=== PATIENT | female | born 1955 | race Caucasian/White ===

== ENCOUNTER 2021-04-08 15:35 | Inpatient (IN) | payer MEDICAID ==
[~2021-04-08] VITALS: Ht 165.1 cm; Wt 95.0 kg
[2021-04-08] MEDS ORDERED: acetaminophen 325mg tablet PO ONE (15:55)
[2021-04-08] MEDS ORDERED: ATOR10TA PO (16:02)
[2021-04-08] MEDS ORDERED: PSEU-259 PO (16:02)
[2021-04-08] MEDS ORDERED: dexamethasone 4mg tablet PO ONE (16:20)
[2021-04-08] MEDS ORDERED: ipratropium/albuterol 3ml nebule NEB ONE (16:20)
[2021-04-08 17:05] LABS: BASOPHILS % (AUTO) 0.6 % (0-1); EOSINOPHILS # (AUTO) 0.1 X10'3 (0-0.9); EOSINOPHILS % (AUTO) 1.2 % (0-6); HEMATOCRIT 35.5 % (35.0-45.0); LYMPHOCYTES % (AUTO) 18.9 % (21-51); MEAN CORPUSCULAR HGB CONC 33.9 g/dL (33.0-36.5); MEAN CORPUSCULAR VOLUME 82.6 FL (78-98); MEAN PLATELET VOLUME 9.7 FL (7.4-10.4); MONOCYTES # (AUTO) 0.7 X10'3 (0-0.9); MONOCYTES % (AUTO) 12.5 % (2-12); NEUTROPHILS # (AUTO) 3.6 X10'3 (1.8-7.7); NEUTROPHILS % (AUTO) 66.8 % (42-75); PLATELET COUNT 164 X10'3 (140-440); RED CELL DISTRIBUTION WIDTH 14.5 % (11.5-14.5); WHITE BLOOD COUNT 5.3 X10'3 (4.5-11.0)
[2021-04-08 17:17] LABS: ALANINE AMINOTRANSFERASE 45 U/L (12-78); ALBUMIN 3.1 G/DL (3.4-5.0); ALBUMIN/GLOBULIN RATIO 0.9 (1.1-1.5); ALKALINE PHOSPHATASE 70 IU/L (46-116); ANION GAP 8 (8-16); ASPARTATE AMINO TRANSFERASE 69 U/L (10-37); BILIRUBIN,TOTAL 0.7 MG/DL (0.1-1.0); BLOOD UREA NITROGEN 10 MG/DL (7-18); BUN/CREATININE RATIO 10.5 (6.6-38.0); CHLORIDE 101 MMOL/L (99-107); CREATININE 0.95 MG/DL (0.40-0.90); GLUCOSE 96 MG/DL (70-104); POTASSIUM 3.9 MMOL/L (3.5-5.1); SODIUM 135 MMOL/L (135-145); TOTAL CARBON DIOXIDE 26.2 MMOL/L (24-32); TOTAL PROTEIN 6.7 G/DL (6.4-8.2); eGFR 59 ML/MIN
[2021-04-08 17:20] LABS: MAGNESIUM 2.1 MG/DL (1.5-2.4)
--- NOTE | 2021-04-08 17:32 | NUR ---
Pt refuses covid test and flu test.
[2021-04-08 17:35] LABS: D-DIMER 1.44 MG/L FEU (0-0.50)
[2021-04-08] MEDS ORDERED: iohexol 350MG/ML 100ml bottle IV ONE (17:50)
--- NOTE | 2021-04-08 18:01 | NUR ---
RT PAGED FOR BREATHING TX IN RAP
[2021-04-08 19:07] LABS: C-REACTIVE PROTEIN 9.49 MG/DL (0.0-0.5); FERRITIN 677 NG/ML (8-252); LACTATE DEHYDROGENASE 503 U/L (81-234)
[2021-04-08] MEDS ORDERED: REMDESIVIR INJ 100 MG in normal saline 100ml IV soln 80 ML IV SCH (19:10)
[2021-04-08] MEDS ORDERED: potassium Cl 20 mEq SR tablet PO PRN ×2 (19:15)
[2021-04-08] MEDS ORDERED: morphine 2 MG/ML inj. syringe IV PRN (19:15)
[2021-04-08] MEDS ORDERED: ondansetron/PF 4mg/2ml inj IV PRN (19:15)
[2021-04-08] MEDS ORDERED: magnesium hydroxide 30ml (MOM) UD suspension PO PRN (19:15)
[2021-04-08] MEDS ORDERED: HYDROcodone/acetaminophen 5mg/325mg tablet PO PRN (19:15)
[2021-04-08] MEDS ORDERED: potassium CL 10mEq/100ml bag 100 ML IV PRN (19:15)
[2021-04-08] MEDS ORDERED: magnesium Cl slow-release 64mg tablet PO PRN (19:15)
[2021-04-08] MEDS ORDERED: mag hydrox/Alum hydrox/simeth 30ml oral suspension PO PRN (19:15)
[2021-04-08] MEDS ORDERED: acetaminophen 325mg tablet PO PRN ×2 (19:15)
[2021-04-08] MEDS ORDERED: magnesium 2GM in 50ml NS 50 ML IV PRN (19:15)
[2021-04-08] MEDS ORDERED: magnesium 4gm in 100ml NS 100 ML IV PRN (19:15)
[2021-04-08] MEDS ORDERED: REMDESIVIR 200 MG in NS 100ml IVPB Loading dose IV ONE (19:25)
[2021-04-08] MEDS ORDERED: dexamethasone 4mg/ml inj IV SCH (20:00)
[2021-04-08] MEDS: K and/or MAG REPLACEMENT MC SCH (20:00)
[2021-04-08] MEDS: albuterol 2.5 MG/3 ML nebule NEB SCH (20:00)
[2021-04-08] MEDS: normal saline 1000ml 1,000 ML IV SCH (20:17)
[2021-04-08] MEDS: dexamethasone 6 MG in D5W 100ml IV soln IV SCH (20:35)
[2021-04-08] MEDS ORDERED: temazepam 15mg capsule PO PRN (21:00)
[2021-04-08] MEDS: CefTRIAXone 2gm/D5W 50ml BAG 50 ML IV SCH (21:04)
[2021-04-08] MEDS ORDERED: NO HOME MEDS (22:43)
[2021-04-08 22:44] LABS: CLARITY,URINE CLEAR (Clear); COLOR,URINE YELLOW (Yellow); GLUCOSE, URINE NEGATIVE (Neg); KETONES,URINE NEGATIVE (Neg); LEUKOCYTE ESTERASE ,URINE NEGATIVE (Neg); NITRITES, URINE NEGATIVE (Neg); OCCULT BLOOD,URINE NEGATIVE (Neg); PROTEIN,URINE NEGATIVE (Neg); UROBILINOGEN,URINE 0.2 E.U/dL (0.2-1.0)
[2021-04-08 22:47] LABS: UA COLLECTION TYPE NON-SPECIFIED
[2021-04-09] MEDS: heparin, porcine 5000 units/ml vial SQ SCH ×3 (00:50→16:00)
[2021-04-09] MEDS: albuterol 2.5 MG/3 ML nebule NEB SCH ×6 (04:00→19:29)
[2021-04-09] MEDS: ALBUTEROL INHALER 1 PUFF/90 MCG INHALER IH SCH ×6 (04:43→23:43)
[2021-04-09] MEDS ORDERED: REMDESIVIR INJ 100 MG in normal saline 100ml IV soln 100 ML IV SCH (08:00)
[2021-04-09] MEDS: CefTRIAXone 2gm/D5W 50ml BAG 50 ML IV SCH (08:00)
[2021-04-09] MEDS: K and/or MAG REPLACEMENT MC SCH ×2 (08:00→19:29)
[2021-04-09 09:41] LABS: BASOPHILS % (AUTO) 0.5 % (0-1); EOSINOPHILS % (AUTO) 0.1 % (0-6); HEMATOCRIT 38.5 % (35.0-45.0); HEMOGLOBIN 12.8 g/dl (12.0-16.0); LYMPHOCYTES # (AUTO) 0.8 X10'3 (1.1-4.8); LYMPHOCYTES % (AUTO) 19.3 % (21-51); MEAN CORPUSCULAR HEMOGLOBIN 27.6 PG (27.0-31.0); MEAN CORPUSCULAR HGB CONC 33.2 g/dL (33.0-36.5); MEAN CORPUSCULAR VOLUME 83.1 FL (78-98); MEAN PLATELET VOLUME 9.5 FL (7.4-10.4); MONOCYTES # (AUTO) 0.4 X10'3 (0-0.9); MONOCYTES % (AUTO) 8.7 % (2-12); NEUTROPHILS % (AUTO) 71.4 % (42-75); PLATELET COUNT 176 X10'3 (140-440); RED BLOOD COUNT 4.63 X10'6 (4.20-5.60); RED CELL DISTRIBUTION WIDTH 14.5 % (11.5-14.5); WHITE BLOOD COUNT 4.2 X10'3 (4.5-11.0)
[2021-04-09 09:49] LABS: D-DIMER 1.62 MG/L FEU (0-0.50)
[2021-04-09 09:55] LABS: ALANINE AMINOTRANSFERASE 43 U/L (12-78); ALBUMIN 2.8 G/DL (3.4-5.0); ALBUMIN/GLOBULIN RATIO 0.7 (1.1-1.5); ALKALINE PHOSPHATASE 65 IU/L (46-116); ANION GAP 11 (8-16); ASPARTATE AMINO TRANSFERASE 53 U/L (10-37); BILIRUBIN,TOTAL 0.4 MG/DL (0.1-1.0); BLOOD UREA NITROGEN 12 MG/DL (7-18); BUN/CREATININE RATIO 14.1 (6.6-38.0); CALCIUM 8.8 MG/DL (8.5-10.1); CHLORIDE 106 MMOL/L (99-107); CREATININE 0.85 MG/DL (0.40-0.90); GLUCOSE 187 MG/DL (70-104); POTASSIUM 3.8 MMOL/L (3.5-5.1); SODIUM 142 MMOL/L (135-145); TOTAL CARBON DIOXIDE 25.1 MMOL/L (24-32); eGFR 67 ML/MIN
[2021-04-09 09:57] LABS: C-REACTIVE PROTEIN 9.53 MG/DL (0.0-0.5)
[2021-04-09] MEDS: REMDESIVIR INJ 100 MG in normal saline 100ml IV soln 100 ML IV SCH (11:19)
[2021-04-09] MEDS: dexamethasone 6 MG in D5W 100ml IV soln IV SCH ×2 (11:19→20:55)
[2021-04-09] MEDS: normal saline 1000ml 1,000 ML IV SCH (11:27)
[2021-04-10] MEDS: heparin, porcine 5000 units/ml vial SQ SCH ×4 (00:13→23:50)
[2021-04-10 01:02] LABS: BASOPHILS # (AUTO) 0.1 X10'3 (0-0.2); BASOPHILS % (AUTO) 0.6 % (0-1); EOSINOPHILS % (AUTO) 0.1 % (0-6); HEMATOCRIT 34.9 % (35.0-45.0); HEMOGLOBIN 11.7 g/dl (12.0-16.0); LYMPHOCYTES # (AUTO) 0.8 X10'3 (1.1-4.8); MEAN CORPUSCULAR HEMOGLOBIN 27.6 PG (27.0-31.0); MEAN CORPUSCULAR HGB CONC 33.4 g/dL (33.0-36.5); MEAN CORPUSCULAR VOLUME 82.5 FL (78-98); MEAN PLATELET VOLUME 9.6 FL (7.4-10.4); MONOCYTES # (AUTO) 0.9 X10'3 (0-0.9); MONOCYTES % (AUTO) 8.7 % (2-12); NEUTROPHILS # (AUTO) 8.6 X10'3 (1.8-7.7); NEUTROPHILS % (AUTO) 82.6 % (42-75); PLATELET COUNT 217 X10'3 (140-440); RED BLOOD COUNT 4.23 X10'6 (4.20-5.60); RED CELL DISTRIBUTION WIDTH 14.7 % (11.5-14.5); WHITE BLOOD COUNT 10.4 X10'3 (4.5-11.0)
[2021-04-10 01:17] LABS: ALANINE AMINOTRANSFERASE 48 U/L (12-78); ALBUMIN 2.7 G/DL (3.4-5.0); ALBUMIN/GLOBULIN RATIO 0.8 (1.1-1.5); ALKALINE PHOSPHATASE 71 IU/L (46-116); ANION GAP 10 (8-16); ASPARTATE AMINO TRANSFERASE 59 U/L (10-37); BILIRUBIN,TOTAL 0.3 MG/DL (0.1-1.0); BLOOD UREA NITROGEN 20 MG/DL (7-18); BUN/CREATININE RATIO 16.8 (6.6-38.0); C-REACTIVE PROTEIN 7.23 MG/DL (0.0-0.5); CALCIUM 9.7 MG/DL (8.5-10.1); CHLORIDE 106 MMOL/L (99-107); CREATININE 1.19 MG/DL (0.40-0.90); GLUCOSE 151 MG/DL (70-104); POTASSIUM 4.3 MMOL/L (3.5-5.1); SODIUM 140 MMOL/L (135-145); TOTAL CARBON DIOXIDE 23.6 MMOL/L (24-32); TOTAL PROTEIN 6.2 G/DL (6.4-8.2); eGFR 46 ML/MIN
[2021-04-10 01:53] LABS: D-DIMER 1.22 MG/L FEU (0-0.50)
[2021-04-10 02:29] LABS: TOTAL CELLS COUNTED 100
[2021-04-10 02:30] LABS: PLATELET ESTIMATE NORMAL
[2021-04-10] MEDS: normal saline 1000ml 1,000 ML IV SCH ×2 (02:36→16:12)
[2021-04-10] MEDS: ALBUTEROL INHALER 1 PUFF/90 MCG INHALER IH SCH ×6 (03:36→22:41)
[2021-04-10] MEDS: albuterol 2.5 MG/3 ML nebule NEB SCH ×2 (04:00→08:00)
[2021-04-10] MEDS: K and/or MAG REPLACEMENT MC SCH ×2 (08:00→20:00)
[2021-04-10] MEDS: CefTRIAXone 2gm/D5W 50ml BAG 50 ML IV SCH (08:25)
[2021-04-10] MEDS: dexamethasone 6 MG in D5W 100ml IV soln IV SCH ×2 (08:37→21:24)
[2021-04-10] MEDS: REMDESIVIR INJ 100 MG in normal saline 100ml IV soln 100 ML IV SCH (08:37)
--- NOTE | 2021-04-10 16:04 | NUR ---
road test performed on patient walking pulse ox 81% RA
--- NOTE | 2021-04-10 17:05 | NUR ---
received report from VAIBHAV Simpson in ED. pt going to room 4019N.
--- NOTE | 2021-04-10 18:08 | NUR ---
pt arrived to floor at 1750 to room 4015B
[2021-04-10 18:30] VITALS: BP 102/55
--- NOTE | 2021-04-10 18:30 | NUR ---
Problems reprioritized. Patient report given, questions answered & plan of care reviewed with VAIBHAV Salazar.
[2021-04-10 22:00] VITALS: BP 104/62
[2021-04-11 02:00] VITALS: BP 94/52
[2021-04-11] MEDS: ALBUTEROL INHALER 1 PUFF/90 MCG INHALER IH SCH ×3 (03:11→11:18)
--- NOTE | 2021-04-11 06:10 | NUR ---
received report from angella alexander
--- NOTE | 2021-04-11 06:50 | NUR ---
Problems reprioritized. Patient report given, questions answered & plan of care reviewed with angella Alexander.
[2021-04-11 07:19] LABS: BASOPHILS % (AUTO) 0.2 % (0-1); EOSINOPHILS % (AUTO) 0 % (0-6); HEMATOCRIT 30.2 % (35.0-45.0); HEMOGLOBIN 10.3 g/dl (12.0-16.0); LYMPHOCYTES # (AUTO) 0.7 X10'3 (1.1-4.8); LYMPHOCYTES % (AUTO) 6.9 % (21-51); MEAN CORPUSCULAR HEMOGLOBIN 28.1 PG (27.0-31.0); MEAN CORPUSCULAR HGB CONC 34.2 g/dL (33.0-36.5); MONOCYTES # (AUTO) 0.8 X10'3 (0-0.9); MONOCYTES % (AUTO) 7.6 % (2-12); NEUTROPHILS # (AUTO) 9.1 X10'3 (1.8-7.7); NEUTROPHILS % (AUTO) 85.3 % (42-75); PLATELET COUNT 233 X10'3 (140-440); RED BLOOD COUNT 3.68 X10'6 (4.20-5.60); RED CELL DISTRIBUTION WIDTH 14.9 % (11.5-14.5); WHITE BLOOD COUNT 10.7 X10'3 (4.5-11.0)
[2021-04-11 07:38] LABS: ALANINE AMINOTRANSFERASE 46 U/L (12-78); ALBUMIN 2.2 G/DL (3.4-5.0); ALBUMIN/GLOBULIN RATIO 0.7 (1.1-1.5); ALKALINE PHOSPHATASE 66 IU/L (46-116); ANION GAP 7 (8-16); ASPARTATE AMINO TRANSFERASE 47 U/L (10-37); BILIRUBIN,TOTAL 0.2 MG/DL (0.1-1.0); BLOOD UREA NITROGEN 18 MG/DL (7-18); BUN/CREATININE RATIO 24.7 (6.6-38.0); CALCIUM 8.6 MG/DL (8.5-10.1); CHLORIDE 112 MMOL/L (99-107); CREATININE 0.73 MG/DL (0.40-0.90); GLUCOSE 175 MG/DL (70-104); POTASSIUM 4.6 MMOL/L (3.5-5.1); SODIUM 144 MMOL/L (135-145); TOTAL CARBON DIOXIDE 24.7 MMOL/L (24-32); TOTAL PROTEIN 5.5 G/DL (6.4-8.2); eGFR 80 ML/MIN
[2021-04-11] MEDS: K and/or MAG REPLACEMENT MC SCH (08:00)
[2021-04-11] MEDS: dexamethasone 6 MG in D5W 100ml IV soln IV SCH (08:07)
[2021-04-11] MEDS: normal saline 1000ml 1,000 ML IV SCH (08:08)
[2021-04-11] MEDS: heparin, porcine 5000 units/ml vial SQ SCH ×2 (08:20→16:00)
[2021-04-11 08:24] LABS: D-DIMER 1.38 MG/L FEU (0-0.50)
[2021-04-11] MEDS: REMDESIVIR INJ 100 MG in normal saline 100ml IV soln 100 ML IV SCH (10:12)
[2021-04-11 11:00] VITALS: BP 126/70
--- NOTE | 2021-04-11 11:20 | NUR ---
O2 Sat at rest on room air:_92__% If below 89%: Recovery O2 Sat at rest on __3_LPM:_94__%:___% via____NASAL CANNULA (mask/nasal cannula, etc..) No further documentation is necessary. If O2 Sat did not drop below 89% on room air,ambulate patient on room air. O2 Sat while ambulating on room air:__85_% Recovery O2 Sat while ambulating on _3__LPM:__93_% No further documentation is necessary. If patient does not drop below 89% while ambulating, he/she does not qualify for home O2.
[2021-04-11] MEDS ORDERED: PRED20TA PO (13:44)
[2021-04-11] MEDS ORDERED: ALBU6.7H9 IH (13:44)
[2021-04-11] MEDS ORDERED: ASPI-611 PO (13:48)
--- NOTE | 2021-04-11 16:51 | NUR ---
PT D/C WITH INSTRUCTIONS, UNDERSTANDING OF INSTRUCTIONS AND W/ALL BELONGINGS INCLUDING IS AND INHALER IN WHEELCHAIR ACCOMPANIED BY NURSING STAFF TO CAB TO GO TO PERSONAL VEHICLE TO GO HOME AND F/U W/PCP
== END 2021-04-11 16:35 | disposition home or self-care (01) | DRG 137 ==
LOC: ER 15:36 → ED HOLD 19:22 → ORTHO 4S 04-10 17:30
PROVIDERS: ADMIT Internal Medicine; ATTEND Internal Medicine
PROC: XW033E5 Introduction of Remdesivir Anti-infective into Peripheral Vein, Percutaneous Approach, New Technology Group 5 (ICD-10-PCS; principal; 2021-04-08)
PROC: B32T1ZZ Computerized Tomography (CT Scan) of Left Pulmonary Artery using Low Osmolar Contrast (ICD-10-PCS; 2021-04-08)
PROC: B3201ZZ Computerized Tomography (CT Scan) of Thoracic Aorta using Low Osmolar Contrast (ICD-10-PCS; 2021-04-08)
PROC: B32S1ZZ Computerized Tomography (CT Scan) of Right Pulmonary Artery using Low Osmolar Contrast (ICD-10-PCS; 2021-04-08)
DX: U07.1 COVID-19 (principal); J96.01 Acute respiratory failure with hypoxia; J12.82 Pneumonia due to coronavirus disease 2019; I10 Essential (primary) hypertension; I95.9 Hypotension, unspecified; N28.9 Disorder of kidney and ureter, unspecified; R00.1 Bradycardia, unspecified; Z66 Do not resuscitate
CPT/HCPCS: 36415; 71045; 71275; 80053; 81003; 82728; 83605; 83615; 83735; 84145; 84484; 85007; 85025; 85379; 85384; 86140; 87040; 87081; 87635; 93005; 94640; 94760; 99285; C9803; G0378; J0696; J1100; J1644; J3490; J7030; J7060; Q9967

== ENCOUNTER 2023-10-01 07:01 | Day surgery (SDC) | payer MEDICARE, MEDICAID ==
[2023-09-30 11:58] LABS: BASOPHILS # (AUTO) 0.1 X10'3 (0-0.2); EOSINOPHILS # (AUTO) 0.1 X10'3 (0-0.9); LYMPHOCYTES # (AUTO) 1.7 X10'3 (1.1-4.8); MONOCYTES # (AUTO) 0.5 X10'3 (0-0.9)
[2023-09-30 12:00] LABS: BASOPHILS % (AUTO) 1.5 % (0-1); EOSINOPHILS % (AUTO) 2.3 % (0-6); HEMATOCRIT 41.2 % (35.0-45.0); HEMOGLOBIN 13.4 g/dl (12.0-16.0); LYMPHOCYTES % (AUTO) 29.2 % (21-51); MEAN CORPUSCULAR HEMOGLOBIN 27.7 PG (27.0-31.0); MEAN CORPUSCULAR HGB CONC 32.4 g/dL (33.0-36.5); MEAN CORPUSCULAR VOLUME 85.4 FL (78-98); MEAN PLATELET VOLUME 8.6 FL (7.4-10.4); MONOCYTES % (AUTO) 9.3 % (2-12); NEUTROPHILS # (AUTO) 3.3 X10'3 (1.8-7.7); NEUTROPHILS % (AUTO) 57.7 % (42-75); PLATELET COUNT 161 X10'3 (140-440); RED BLOOD COUNT 4.82 X10'6 (4.20-5.60); RED CELL DISTRIBUTION WIDTH 14.8 % (11.5-14.5); WHITE BLOOD COUNT 5.8 X10'3 (4.5-11.0)
[2023-09-30 12:10] LABS: ALBUMIN 3.5 G/DL (3.4-5.0); ANION GAP 6 (8-16); APTT 25 SECONDS (22-32); BLOOD UREA NITROGEN 13 MG/DL (7-18); BUN/CREATININE RATIO 18.1 (10.0-20.0); CALCIUM 10.3 MG/DL (8.5-10.1); CHLORIDE 108 MMOL/L (99-107); CREATININE 0.72 MG/DL (0.40-0.90); GLUCOSE 93 MG/DL (70-104); POTASSIUM 4.3 MMOL/L (3.5-5.1); PROTHROMBIN TIME 10.5 SECONDS (9.0-12.0); SODIUM 142 MMOL/L (135-145); TOTAL CARBON DIOXIDE 27.7 MMOL/L (24-32); eGFR 81 ML/MIN
[2023-10-01] VITALS (11 sets, daily range): BP systolic 103–122; BP diastolic 50–80; PULSE 44–74; RESP 13–17; TEMP 98.1; O2SAT 94–99
[~2023-10-01] VITALS: Ht 165.1 cm; Wt 93.2 kg
[~2023-10-01 07:01] MED LIST: ALBU6.7H14 IH
[2023-10-01] MEDS ORDERED: NO HOME MEDS (07:25)
[2023-10-01] MEDS ORDERED: normal saline 1000ml 1,000 ML IV SCH (07:50)
[2023-10-01] MEDS ORDERED: cefazolin 2gm/D5W 100mL 100 ML IV ONE (07:50)
[2023-10-01] MEDS ORDERED: iohexol 350 MG/ML 50ML vial IV ONE (09:49)
[2023-10-01] MEDS ORDERED: fentaNYL/PF 50MCG/1 ML 2ML syringe ONE (09:49)
[2023-10-01] MEDS ORDERED: midazolam 1 mg/ML 2ml injection ONE (09:49)
[2023-10-01] MEDS ORDERED: ceFAZolin 1000mg inj ONE (09:50)
[2023-10-01] MEDS ORDERED: LIDOcaine 1% w/EPI 1:100,000 inj. MDV 50 ML VIAL ONE (09:50)
[2023-10-01] MEDS ORDERED: HYDROcodone/acetaminophen 5mg/325mg tablet PO PRN (12:20)
[2023-10-01] MEDS ORDERED: HYDROcodone/acetaminophen 10/325mg tab PO PRN (12:20)
[2023-10-01] MEDS: vancomycin/NS 1 GM ADD-VANTAGE 250 ML IV ONE (13:58)
== END 2023-10-01 17:05 | disposition home or self-care (01) ==
LOC: SSTAY O 07:01
PROVIDERS: ATTEND Internal Medicine Cardiovascular Disease
DX: I49.5 Sick sinus syndrome (principal); E03.9 Hypothyroidism, unspecified; E78.5 Hyperlipidemia, unspecified; E66.3 Overweight; Z98.49 Cataract extraction status, unspecified eye; Z98.890 Other specified postprocedural states; Z68.34 Body mass index [BMI] 34.0-34.9, adult; Z80.9 Family history of malignant neoplasm, unspecified; Z81.8 Family history of other mental and behavioral disorders
CPT/HCPCS: 33208; 36415; 71046; 80048; 85025; 85610; 85730; 93005; 99152; 99153; A4565; A6402; C1785; C1898; J0690; J2250; J3010; J3370; J3490; J7030; Q9967; Z7610; A6449